=== PATIENT | female | born 1990 | race Caucasian/White ===

== ENCOUNTER 2016-10-24 11:53 | Emergency (ER) | payer OTHER ==
[~2016-10-24] VITALS: Ht 157.5 cm; Wt 75.7 kg
[~2016-10-24 11:53] MED LIST: CEFDINIR300 M1 PO; LAC PO; MACRODANTIN100 MG; MOTRIN800 MG PO; [UNRECOGNIZED DRUG - OTHER] PO
[2016-10-24 14:22] VITALS: BP 139/94
== END 2016-10-24 14:22 | disposition home or self-care (01) ==
LOC: ED 11:53
DX: Z76.0 Encounter for issue of repeat prescription (principal); S39.012A Strain of muscle, fascia and tendon of lower back, initial encounter; G89.29 Other chronic pain; Z88.0 Allergy status to penicillin; F19.20 Other psychoactive substance dependence, uncomplicated; X58.XXXA Exposure to other specified factors, initial encounter; Y93.89 Activity, other specified; Y92.89 Other specified places as the place of occurrence of the external cause; Y99.8 Other external cause status